=== PATIENT | female | born 1990 | race Caucasian/White ===

== ENCOUNTER 2016-06-09 20:14 | Emergency (ER) | payer OTHER ==
[~2016-06-09] VITALS: Ht 160 cm; Wt 61.4 kg
[~2016-06-09 20:14] MED LIST: ACETAMINOPHEN-120 ML PO; ALBUTEROL SULF8.5 GM IH; BACTRIM,SEPT1 TABLET PO; CLARITIN10 M4 PO; DELTASONE20 M1 PO; FLOVENT 11120 INHALA IH; MONTELUKAST SOD10 MG PO; NAPROXEN500 MG PO; NOHOMEMEDS; NORCO 5/3251 TABLET PO; NUVARING VAGIN1 EACH VG; PREDNISONE10 MG PO; PREDNISONE20 MG PO; PROAIR HFA8.5 GM IH; PROVENTIL,2.5 MG/0.5 AEROSOL; VENTOLIN HFA18 GM IH; ZITHROMAX Z-PA250 MG PO
[2016-06-09 21:16] VITALS: BP 113/89
== END 2016-06-09 21:21 | disposition left against medical advice (07) ==
LOC: EME 20:14
DX: Z20.2 Contact with and (suspected) exposure to infections with a predominantly sexual mode of transmission (principal); Z11.3 Encounter for screening for infections with a predominantly sexual mode of transmission; R45.1 Restlessness and agitation; J45.909 Unspecified asthma, uncomplicated; F17.200 Nicotine dependence, unspecified, uncomplicated
CPT/HCPCS: 81003; 84703; 87210; 99281; 99284; J0696

== ENCOUNTER 2017-10-21 13:48 | Emergency (ER) | payer SELFPAY ==
[~2017-10-21] VITALS: Ht 160 cm; Wt 54.0 kg
[2017-10-21] MEDS ORDERED: DOXYCYCLINE HY100 MG PO (15:17)
[2017-10-21] MEDS ORDERED: FLAGYL500 MG PO (15:17)
[2017-10-21 16:11] VITALS: BP 117/77
== END 2017-10-21 16:12 | disposition home or self-care (01) ==
LOC: EME 13:48
PROVIDERS: Emergency Medicine Emergency Medical Services
DX: N76.0 Acute vaginitis (principal); B96.89 Other specified bacterial agents as the cause of diseases classified elsewhere; Z20.2 Contact with and (suspected) exposure to infections with a predominantly sexual mode of transmission; F17.200 Nicotine dependence, unspecified, uncomplicated
CPT/HCPCS: 81025; 99281; 99284; J0696

== ENCOUNTER 2017-12-19 07:22 | Day surgery (SDC) | payer OTHER ==
[~2017-12-19] VITALS: Ht 160 cm; Wt 53.5 kg
[~2017-12-19 07:22] MED LIST changes: +DOXYCYCLINE HY100 MG PO; +FLAGYL500 MG PO; +NICODERM CQ1 EAC2 TD
[2017-12-19 08:30] VITALS: BP 127/70
[2017-12-19] MEDS ORDERED: COLACE100 MG PO (13:35)
[2017-12-19] MEDS ORDERED: DILAUDID4 MG PO (13:35)
[2017-12-19] MEDS ORDERED: ONDANSETRON HCL8 MG PO (13:35)
[2017-12-19 16:16] VITALS: BP 104/55
[2017-12-19 16:51] VITALS: BP 114/58
== END 2017-12-19 17:10 | disposition home or self-care (01) ==
LOC: SDC 07:22
PROC: 0YU64JZ Supplement Left Inguinal Region with Synthetic Substitute, Percutaneous Endoscopic Approach (ICD-10-PCS; principal; 2017-12-19)
DX: K40.90 Unilateral inguinal hernia, without obstruction or gangrene, not specified as recurrent (principal); J45.909 Unspecified asthma, uncomplicated; F17.200 Nicotine dependence, unspecified, uncomplicated
CPT/HCPCS: 80323 90; 84702; C1781; J0131; J0330; J0690; J1100; J1170; J1885; J2250; J2405; J2795; J3010